=== PATIENT | female | born 1945 | race Caucasian/White ===

== ENCOUNTER 2017-01-21 21:39 | Inpatient (IN) | payer MEDICARE, OTHER ==
[~2017-01-21] VITALS: Ht 152.4 cm; Wt 52.2 kg
[2017-01-21] MEDS ORDERED: MAG HYDROX/AL HYDROX/SIMETH 30 ML UDC PO PRN (23:00)
[2017-01-21] MEDS ORDERED: MAGNESIUM HYDROXIDE 30 ML UDC PO PRN (23:00)
[2017-01-22 00:21] VITALS: BP 140/86
[2017-01-22] MEDS ORDERED: ZOLPIDEM TARTRATE 5 MG TABLET ONE (01:06)
[2017-01-22] MEDS: ZOLPIDEM TARTRATE 5 MG TABLET PO PRN ×2 (01:27→22:40)
--- NOTE | 2017-01-22 01:41 | NUR ---
GPS RN ADMITTED NOTES ADMITTED THIS 71Y/O FEMALE FROM [facility] ,PT INITIALLY CAME FROM HOME , PT. CAME TO THE UNIT VIA GURNEY ACCOMPANIED EMT STAFF PT. IS ON 5150 HOLD GRAVELY DISABLE, PER HOLD PT. REUSING TO TO TAKE HOME MEDICATIONS AND PT. NOT EATING SLEEPING ,UPON FACE TO FACE ASSESSMENT PT. A/O X3 ANXIOUS DEPRESSIVE UNCCOPERTIVE BX NOTED , MENTAL HX OF BIPOLAR DISORDERED, PT. DIDNOT PROVIDED ANY MEDICAL HX AND UNOBTAIN LIST OF INFORMATION MEDICATION SKIN ASSESSMENT DONE RIGHT /LEFT ARMS BRUISES NOTED , PICTURE TAKEN AND PLACED IN THE CHART , NO ACUTE DISTRESS NOTED , DENIES ANY PAIN DISCOMFORT AT THIS TIME , MRSA SCREENING DONE ,BOTH MD AWARE OF NEW ADMISSION NEW ORDERS RECEIVED AND CARRIED OUT, REORIENT TO UNIT POLICES AND CONTRABAND CHECKS , WILL CONTINUE TO MONITOR FOR SAFETY AND BEHAVIOR
[2017-01-22 06:51] LABS: BASOPHILS % (AUTO) 0.3 % (0.0-2.0); EOSINOPHILS # (AUTO) 0.1 /CMM (0.0-0.7); EOSINOPHILS % (AUTO) 1.1 % (0.0-6.0); HEMATOCRIT 45 % (33-45); HEMOGLOBIN 15.2 g/dL (11.5-14.8); LYMPHOCYTES % (AUTO) 30.2 % (20.0-44.0); MEAN CORPUSCULAR HEMOGLOBIN 32 PG (26.0-33.0); MEAN CORPUSCULAR HGB CONC 34 g/dl (31.0-36.0); MEAN CORPUSCULAR VOLUME 95 fL (82-100); MONOCYTES # (AUTO) 0.7 /CMM (0.1-1.30); MONOCYTES % (AUTO) 9.8 % (2.0-12.0); NEUTROPHILS # (AUTO) 3.9 /CMM (1.8-8.9); NEUTROPHILS % (AUTO) 58.6 % (43.0-81.0); PLATELET COUNT (AUTO) 216 /CMM (150-450); RDW COEFFICIENT OF VARIATION 13.9 (11.5-15.0); RED BLOOD CELL COUNT(AUTO) 4.78 MIL/uL (4.0-5.2); WHITE BLOOD COUNT (AUTO) 6.7 K/uL (4.3-11.0)
[2017-01-22 07:10] LABS: ALANINE AMINOTRANSFERASE 30 U/L (12-78); ALBUMIN 4.4 g/dL (3.4-5.0); ALKALINE PHOSPHATASE 70 U/L (46-116); ASPARTATE AMINOTRANSFERASE 26 U/L (15-37); BILIRUBIN,TOTAL 0.7 mg/dL (0.2-1.0); CALCIUM, SERUM 9.6 mg/dL (8.5-10.1); CARBON DIOXIDE 27 mmol/L (21-32); CHLORIDE 106 mmol/L (98-107); CREATININE 0.9 mg/dL (0.6-1.3); GLUCOSE 114 mg/dL (74-106); POTASSIUM 3.4 mmol/L (3.5-5.1); SODIUM SERUM 145 mmol/L (136-145); TOTAL PROTEIN, SERUM 7.9 g/dL (6.4-8.2); UREA NITROGEN, BLOOD 8 mg/dL (7-18)
[2017-01-22] MEDS ORDERED: SIMV40TA5 PO (07:38)
[2017-01-22] MEDS ORDERED: QUET50TA PO (07:38)
[2017-01-22] MEDS ORDERED: TEMA30CA PO (07:38)
[2017-01-22] MEDS ORDERED: ALPR0.5T8 PO (07:38)
[2017-01-22 08:00] VITALS: BP 147/87
[2017-01-22] MEDS ORDERED: POTASSIUM CHLORIDE 20 MEQ TAB.PRT.SR PO ONE (09:30)
[2017-01-22] MEDS: LORAZEPAM 0.5 MG TABLET PO PRN (11:02)
[2017-01-22] MEDS ORDERED: OLANZAPINE 10 MG VIAL IM ONE (12:30)
[2017-01-22] MEDS ORDERED: LORAZEPAM INJ 2 MG/ML VIAL IM ONE (12:30)
[2017-01-22] MEDS ORDERED: QUETIAPINE FUMARATE 25 MG TABLET PO SCH (14:30)
[2017-01-22 15:00] LABS: CHOLESTEROL 135 mg/dL (<200); HDL CHOLESTEROL 63 mg/dL (40-60); LDL 61 mg/dL (0-99); TRIGLYCERIDES 78 mg/dL (30-150)
[2017-01-22 16:00] VITALS: BP 139/81
[2017-01-22 20:00] VITALS: BP 135/95
--- NOTE | 2017-01-22 20:00 | NUR ---
RN INITIAL NOTES: RECEIVED PT, PT IN THE ROOM DAUGHTER AT BED SIDE, PT IS CALM AND CURRENTLY COOPERATIVE, RESPIRATION EVEN AND UNLABORED, DENIES ANY PAIN, PT IS A/O X3, PER REPORT PT BECAME COMBATIVE AGGRESSIVE DURING THE DAY AND HAS TO RECEIVE CHEMICAL RESTRAINT DUE TO AGGRESSIVE UNCONTROLLED BEHAVIOR.SO FAR, PT IS PLEASANT AND MED COMPLIANT, WILL CONTINUE TO MONITOR FOR SAFETY [id number] AND FOR ANY CHANGES IN BEHAVIOR
--- NOTE | 2017-01-22 22:40 | NUR ---
PRN AMBIEN: PT REQUESTED SLEEPING PILL, PRN AMBIEN 5MG TAB PO ADMINISTERED TO THE PT AT THIS TIME
--- NOTE | 2017-01-23 05:40 | NUR ---
RN NOTES: PT BECAME LOUD BECAUSE SHE DOESN'T WANT TO GO BACK TO HER ROOM AND WOULD LIKE TO WATCH THE OTHER PATIENT IN ROOM 213, EXPLAINED TO THE PT REGARDING SAFETY, BUT STILL DOES NOT WANT TO LISTEN
--- NOTE | 2017-01-23 06:52 | NUR ---
RN CLOSING NOTES: PT IN THE DINING ROOM SITTING IN A DRE CHAIR PT BECAME TOO LOUD EARLIER, DENIES ANY PAIN OR DISCOMFORT AT THIS TIME, DENIES ANY SI/HI, VS REMAINS STABLE, NEEDS ATTENDED, WILL ENDORSE TO DAY RN FOR JESSE.
[2017-01-23 08:12] VITALS: BP 149/90
[2017-01-23] MEDS: SERTRALINE HCL 25 MG TABLET PO SCH (08:43)
[2017-01-23] MEDS: LORAZEPAM 0.5 MG TABLET PO PRN (08:43)
[2017-01-23] MEDS: QUETIAPINE FUMARATE 25 MG TABLET PO SCH ×3 (09:29→21:35)
[2017-01-23] MEDS: ATENOLOL 25 MG TABLET PO SCH (13:30)
[2017-01-23 20:10] VITALS: BP 145/75
--- NOTE | 2017-01-24 00:25 | NUR ---
Pt has been anxious, loud, argumentative, difficult to redirect, & quite paranoid but compliant with meds w/o any promptings.
[2017-01-24] MEDS: ACETAMINOPHEN 325 MG TABLET PO PRN ×2 (02:52→20:58)
[2017-01-24 08:00] VITALS: BP 170/94
[2017-01-24] MEDS: ATENOLOL 25 MG TABLET PO SCH (08:55)
[2017-01-24] MEDS: QUETIAPINE FUMARATE 25 MG TABLET PO SCH ×4 (08:55→20:57)
[2017-01-24] MEDS: SERTRALINE HCL 25 MG TABLET PO SCH (08:55)
[2017-01-24] MEDS: ATENOLOL 50 MG TABLET PO SCH (11:04)
--- NOTE | 2017-01-24 14:58 | NUR ---
Initial discharge plan: Pt. resides at [address] [place] [address] and wants to discharge back home when ready. SW will talk to pt's , Natasha [phone] who was unavailable. MARCELLA will also follow up with Md and will help arrange for a safe and proper discharge.
[2017-01-24 16:00] VITALS: BP_SYST 105; BP_SYST 125; BP_DIAS 63; BP_DIAS 77
[2017-01-24 22:19] VITALS: BP 150/77
[2017-01-25] MEDS: ZOLPIDEM TARTRATE 5 MG TABLET PO PRN ×2 (02:09→21:28)
--- NOTE | 2017-01-25 02:17 | NUR ---
GPS RN: PATIENT CAME TO THE STATION, ASKING FOR A SLEEPING PILL. GIVEN HER PRN AMBIEN 5 MG PO ORDERED. WHEN SHE SAW THE SURVEYOR'S ASSISTANT DOING HIS ROUNDS, SHE STARTED CURSING AND POINTING HER FINGER AT THE SURVEYOR'S ASSISTANT. THE HAIR MACHINE OPERATOR THEN TRIED TO REDIRECT HER BACK TO THE ROOM, SURVEYOR'S ASSISTANT ALSO TRIED TO REDIRECT HER BACK TO THE ROOM BUT THE PATIENT, STARTED YELLING AND SCREAMING AND SAYING ALL PROFANITIES TOWARDS THE STAFF. PATIENT THEN MADE TO STAY IN THE ROOM.
[2017-01-25] MEDS: LORAZEPAM 0.5 MG TABLET PO PRN (05:59)
--- NOTE | 2017-01-25 06:00 | NUR ---
GPS RN NOTE: PATIENT WAS OUTSIDE THE STATION. WHEN ASKED THE PATIENT IF SHE NEEDS SOMETHING, PATIENT STATED "GET OUT OF HERE, FUCK YOU, FUCK YOURSELF WITH HAND GESTURES". CN AWARE AND WITNESSED THE BEHAVIOR. TRIED TO REDIRECT THE PATIENT BUT THE PATIENT IS HARD TO REDIRECT. PATIENT CONTINUED TO BE AGITATED, AGGRESSIVE, COMBATIVE AND VERBALLY ABUSIVE. PRIMARY NURSE CAME AND TALKED TO THE PATIENT.
--- NOTE | 2017-01-25 06:03 | NUR ---
GPS RN: PATIENT APPROACHED THE NURSE IN THE STATION ASKING FOR A MEDICATION. WHEN SHE SAW THE NURSES DOING THEIR MORNING CARE, PATIENT STARTED YELLING AND SCREAMING AT STAFF. CALLING THE NURSES "BITCH, FAT, LIARS!" PATIENT REDIRECTED TO THE ROOM, BUT PATIENT KEPT ON SCREAMING AND YELLING AT STAFF. ATIVAN 1 MG GIVEN ORALLY PRN MEDICATION. WILL MONITOR PATIENT FOR MOOD, SAFETY AND BEHAVIOR. PATIENT REDIRECTED TO THE DINING ROOM.
--- NOTE | 2017-01-25 06:10 | NUR ---
GPS RN: PATIENT WAS PHYSICALLY REDIRECTED TO THE DINING ROOM, PATIENT CONTINUED TO YELL AND SCREAM IN A LOUD MANNER "FUCK ALL OF YOU!, LIARS!" SHE ALSO KICKED THE STAFF ASSISTING HER TO THE DINING ROOM. . SHE WAS THEN PLACED IN A GERICHAIR FOR SAFETY. CHARGE NURSE CALLED DR. MOON AND INFORMED OF THE PATIENT'S BEHAVIOR. HE THEN GAVE ORDER OF ZYPREXA 10 MG IM ONCE. PRIMARY NURSE PREPARED THE MEDICATION. PRIOR TO GIVING THE IM SHOT, HEAD NECK SURGEON TRIED TO TAKE PATIENT'S VITAL SIGNS BUT PATIENT REFUSED TO COOPERATE. ZYPREXA 10 MG GIVEN IM ON RIGHT UPPER OUTER QUADRANT OF BUTTOCKS AREA AT 0618 AM. SHE WAS ASSISTED AND PHYSICALLY HELD DURING THE MEDICATION ADMINISTRATION. PATIENT CONTINUED TO RESIST AND WAS VERBALLY ABUSIVE SHE WAS BEING ASSISTED IN THE BED IN THE OBSERVATION ROOM.
[2017-01-25] MEDS ORDERED: OLANZAPINE 10 MG VIAL IM ONE ×2 (06:16→06:30)
--- NOTE | 2017-01-25 07:02 | NUR ---
GPS RN NOTE: NOTIFIED LYNDSAY () OF THE PATIENT. LYNDSAY STATED "IT SEEMS TO ME THAT SHE IS NOT GETTING BETTER AND SHE IS GETTING WORST. HOW LONG IS SHE GOING TO BE LIKE THIS". TOLD THE THAT WE CAN NOT BE SURE AT THIS TIME, BUT WE SURELY NOTIFIED THE DOCTOR ABOUT THE INCIDENT. APPRECIATED THE CALL
[2017-01-25 08:00] VITALS: BP 142/76
[2017-01-25] MEDS: ATENOLOL 50 MG TABLET PO SCH (08:16)
[2017-01-25] MEDS: QUETIAPINE FUMARATE 25 MG TABLET PO SCH ×4 (08:16→21:27)
[2017-01-25] MEDS: SERTRALINE HCL 25 MG TABLET PO SCH (08:16)
[2017-01-25 15:58] VITALS: BP 122/72
--- NOTE | 2017-01-25 16:55 | NUR ---
MARCELLA spoke with Natasha [phone] and pt. is not able to return home as she was unmanageable. MARCELLA provided him with information about pt's rights and he understands that if pt. stabilizes and refuses other help and placement options, she can return home.
[2017-01-25] MEDS: SIMVASTATIN 40 MG TABLET PO SCH (17:11)
[2017-01-25 20:12] VITALS: BP 149/88
[2017-01-25] MEDS: ACETAMINOPHEN 325 MG TABLET PO PRN (21:31)
--- NOTE | 2017-01-25 21:34 | NUR ---
GPS RN NOTE: ROUTINE MEDICATION GIVEN TO THE PATIENT. PATIENT APPEARED CALM AND PLEASANT, COMPLIANT AND STATED "IF I INSULTED YOU IN SOME OTHER WAY, IM VERY SORRY, ITS ME, IM HERE FOR A REASON". TOLD PATIENT THAT WE ARE HERE NOT TO LAUNDRY ROOM ATTENDANT THE PATIENT BUT TO HELP THEM. PATIENT IS APPRECIATIVE. ALL NEEDS ATTENDED AND MET. WILL CONTINUE TO MONITOR [id number] FOR SAFETY
[2017-01-26 08:00] VITALS: BP 150/77
[2017-01-26] MEDS: QUETIAPINE FUMARATE 25 MG TABLET PO SCH ×4 (08:26→21:00)
[2017-01-26] MEDS: ATENOLOL 50 MG TABLET PO SCH (08:27)
[2017-01-26] MEDS: SERTRALINE HCL 25 MG TABLET PO SCH (09:29)
[2017-01-26] MEDS ORDERED: OLANZAPINE 10 MG VIAL IM STA (14:54)
--- NOTE | 2017-01-26 15:13 | NUR ---
RN NOTE:PATIENT AGITATED AND ASSAULTIVE REQUESTED ZYPREXA IM INJECTION DR JOHNSON CALLED WITH NEW ORDER ZYPREXA 7.5 MG IM GIVEN AT 1513 ALL ORDERS CARRIED OUT .
--- NOTE | 2017-01-26 15:46 | NUR ---
SW attempted to speak with the patient regarding discharge options but pt. was irritable and did not want to speak. SW will try again later.
[2017-01-26 16:07] VITALS: BP 120/61
[2017-01-26] MEDS: SIMVASTATIN 40 MG TABLET PO SCH (18:23)
--- NOTE | 2017-01-26 19:47 | NUR ---
RN NOTES DR. JOHNSON MADE AWARE THAT PATIENT IS AGITATED, GOING INTO PATIENT'S ROOM, SHOUTING EXPLETIVES. DR. JOHNSON ORDERED HALDOL 5 MG IM X 1, BENADRYL 25 MG IM X 1, AND ATIVAN 1 MG IM X 1, NOTED AND CARRIED OUT.
[2017-01-26 20:00] VITALS: BP 135/73
[2017-01-26] MEDS ORDERED: LORAZEPAM INJ 2 MG/ML VIAL IM ONE (20:00)
[2017-01-26] MEDS ORDERED: HALOPERIDOL LACTATE INJ 5 MG/ML VIAL IM ONE (20:00)
[2017-01-26] MEDS ORDERED: diphenhydrAMINE HCL 50 MG/ML VIAL IM ONE (20:00)
[2017-01-26 20:06] VITALS: BP 135/73
[2017-01-26] MEDS ORDERED: diphenhydrAMINE HCL 50 MG/ML VIAL ONE (20:17)
--- NOTE | 2017-01-27 03:20 | NUR ---
RN NOTES PATIENT MONITORED CLOSELY ALL NIGHT. PATIENT CALMED DOWN; NO LONGER AGITATED. PATIENT WAS ABLE TO SLEEP ON AND OFF. HALDOL IM, BENADRYL IM, AND ATIVAN IM WERE NOT ADMINISTERED AND SUBSEQUENTLY RETURNED OR WASTED. WILL CONTINUE TO MONITOR FOR ANY CHANGE IN MOOD.
--- NOTE | 2017-01-27 06:16 | NUR ---
RN NOTES PATIENT IN BED ASLEEP, AROUSABLE. RESPIRATIONS EVEN. NO SIGNS OF PAIN NOTED. NEEDS ATTENDED. SAFETY PRECAUTIONS AND COMFORT MEASURES IN PLACE. WILL GIVE REPORT TO DAY SHIFT FOR CONTINUITY OF CARE.
[2017-01-27 08:00] VITALS: BP 153/92
[2017-01-27] MEDS: QUETIAPINE FUMARATE 25 MG TABLET PO SCH ×5 (08:08→20:18)
[2017-01-27] MEDS: ATENOLOL 50 MG TABLET PO SCH (08:08)
[2017-01-27] MEDS: DIVALPROEX SODIUM 125 MG TABLET.DR PO SCH ×2 (12:30→20:18)
[2017-01-27] MEDS: SIMVASTATIN 40 MG TABLET PO SCH (16:51)
--- NOTE | 2017-01-27 17:00 | NUR ---
PT. REFUSED FOR V/S CHECKED, EXPLAINED ON THE IMPORTANCE AND PT. STILL REFUSING.
[2017-01-27 20:00] VITALS: BP 104/54
[2017-01-27] MEDS: ZOLPIDEM TARTRATE 5 MG TABLET PO PRN (20:18)
[2017-01-28 08:00] VITALS: BP 106/73
[2017-01-28] MEDS: DIVALPROEX SODIUM 125 MG TABLET.DR PO SCH ×2 (08:16→20:55)
[2017-01-28] MEDS: QUETIAPINE FUMARATE 25 MG TABLET PO SCH ×4 (08:17→20:55)
[2017-01-28] MEDS: ATENOLOL 50 MG TABLET PO SCH (08:17)
[2017-01-28 15:57] VITALS: BP 126/77
[2017-01-28] MEDS: SIMVASTATIN 40 MG TABLET PO SCH (17:43)
--- NOTE | 2017-01-28 19:16 | NUR ---
GPS/RN NOTE: RECEIVED PATIENT AT THE DINING AREA ON THE BRYSON-CHAIR, FAMILY VISITS AT THIS TIME. NO APPARENT DISTRESS NOTED.
[2017-01-28 20:00] VITALS: BP 109/51
[2017-01-29] MEDS: LORAZEPAM 0.5 MG TABLET PO PRN ×2 (00:20→10:32)
--- NOTE | 2017-01-29 00:21 | NUR ---
GPS/RN NOTE: PATIENT ANXIOUS, UNABLE TO SLEEP, ATIVAN 1 MG TAB PO GIVEN.
[2017-01-29 08:00] VITALS: BP 122/82
[2017-01-29 08:31] LABS: BASOPHILS % (AUTO) 0.4 % (0.0-2.0); EOSINOPHILS # (AUTO) 0.1 /CMM (0.0-0.7); EOSINOPHILS % (AUTO) 1.9 % (0.0-6.0); HEMATOCRIT 37 % (33-45); HEMOGLOBIN 12.6 g/dL (11.5-14.8); LYMPHOCYTES # (AUTO) 1.6 /CMM (0.8-4.8); LYMPHOCYTES % (AUTO) 27.1 % (20.0-44.0); MEAN CORPUSCULAR HEMOGLOBIN 33 PG (26.0-33.0); MEAN CORPUSCULAR HGB CONC 34 g/dl (31.0-36.0); MEAN CORPUSCULAR VOLUME 95 fL (82-100); MONOCYTES # (AUTO) 0.6 /CMM (0.1-1.30); MONOCYTES % (AUTO) 9.8 % (2.0-12.0); NEUTROPHILS # (AUTO) 3.5 /CMM (1.8-8.9); NEUTROPHILS % (AUTO) 60.8 % (43.0-81.0); PLATELET COUNT (AUTO) 219 /CMM (150-450); RDW COEFFICIENT OF VARIATION 13.7 (11.5-15.0); RED BLOOD CELL COUNT(AUTO) 3.89 MIL/uL (4.0-5.2); WHITE BLOOD COUNT (AUTO) 5.8 K/uL (4.3-11.0)
[2017-01-29 09:07] LABS: CARBON DIOXIDE 28 mmol/L (21-32); CHLORIDE 108 mmol/L (98-107); CREATININE 0.9 mg/dL (0.6-1.3); GLUCOSE 107 mg/dL (74-106); POTASSIUM 4.8 mmol/L (3.5-5.1); SODIUM SERUM 144 mmol/L (136-145); UREA NITROGEN, BLOOD 18 mg/dL (7-18)
[2017-01-29] MEDS: ATENOLOL 50 MG TABLET PO SCH (10:32)
[2017-01-29] MEDS: QUETIAPINE FUMARATE 25 MG TABLET PO SCH ×4 (10:32→21:48)
[2017-01-29] MEDS: DIVALPROEX SODIUM 125 MG TABLET.DR PO SCH ×2 (10:33→21:48)
[2017-01-29 16:00] VITALS: BP 105/64
[2017-01-29] MEDS: SIMVASTATIN 40 MG TABLET PO SCH (17:59)
[2017-01-29 20:00] VITALS: BP 121/64
[2017-01-29] MEDS: ZOLPIDEM TARTRATE 5 MG TABLET PO PRN (21:48)
[2017-01-30 07:48] VITALS: BP 124/67
[2017-01-30] MEDS: QUETIAPINE FUMARATE 25 MG TABLET PO SCH ×4 (08:25→21:37)
[2017-01-30] MEDS: DIVALPROEX SODIUM 125 MG TABLET.DR PO SCH ×2 (08:25→21:37)
[2017-01-30] MEDS: ATENOLOL 50 MG TABLET PO SCH (08:26)
[2017-01-30 15:45] VITALS: BP 102/65
[2017-01-30] MEDS: SIMVASTATIN 40 MG TABLET PO SCH (17:57)
[2017-01-30 20:05] VITALS: BP 125/74
[2017-01-30] MEDS: ZOLPIDEM TARTRATE 5 MG TABLET PO PRN (21:37)
--- NOTE | 2017-01-31 07:55 | NUR ---
RN GPS NOTES PT AT THE DINING ROOM EATING BREAKFAST, CALM AT THIS TIME, NEEDS ATTENDED.
[2017-01-31 08:00] VITALS: BP 101/64
[2017-01-31] MEDS: QUETIAPINE FUMARATE 25 MG TABLET PO SCH ×3 (08:58→17:00)
[2017-01-31] MEDS: DIVALPROEX SODIUM 125 MG TABLET.DR PO SCH ×3 (08:58→22:36)
[2017-01-31] MEDS: ATENOLOL 50 MG TABLET PO SCH (09:00)
--- NOTE | 2017-01-31 14:16 | NUR ---
MARCELLA met with the patient again today and pt. refuses to be placed in a facility. Pt. states she wants to return home and will not agree to a placement.
--- NOTE | 2017-01-31 14:17 | NUR ---
MARCELLA spoke with pt's , Natasha [phone] who wanted to provide pt's daughter's phone number, Laura [phone]. Natasha stated that Laura might be coming to bean picker the patient if she is discharging tomorrow or Tuesday.
--- NOTE | 2017-01-31 17:23 | NUR ---
RN GPS NOTES PT IN HER ROOM, LOOKING OUT THE WINDOW, REFUSED ALL PM MEDS, EXPLAINED RISKS AND BENEFITS, STILL REFUSED, RJ METAL BENDING MACHINE OPERATOR CAME TO SEE PT, INFORMED OF PT'S REFUSALS, DR. JOHNSON ALSO AWARE.
[2017-01-31] MEDS: SIMVASTATIN 40 MG TABLET PO SCH (18:00)
[2017-01-31] MEDS: QUETIAPINE FUMARATE 100 MG TABLET PO SCH ×2 (21:43→22:36)
--- NOTE | 2017-01-31 21:43 | NUR ---
GPS RN NOTE: PATIENT REFUSED SEROQUEL AND DEPAKOTE, ATTEMPTED X 3, EXPLAINED THE RISK AND BENEFIT, PATIENT STILL REFUSED AND STATED "I UNDERSTAND THE CIRCUMSTANCES BUT I STILL REFUSED" WILL CONTINUE TO MONITOR [id number] FOR SAFETY
--- NOTE | 2017-01-31 22:52 | NUR ---
GPS RN NOTE: PATIENT NOTED FOR ASKING THE MEDICATION INTO ANOTHER FEMALE NURSE. PER REPORT PATIENT APPEARED PARANOID AND SUSPICIOUS. SCHEDULED DEPAKOTE AND SEROQUEL GIVEN BY OTHER NURSE AND PATIENT COOPERATED. WILL CONTINUE TO MONITOR [id number] FOR SAFETY
[2017-02-01 08:00] VITALS: BP 130/78
[2017-02-01] MEDS: ATENOLOL 50 MG TABLET PO SCH (08:32)
[2017-02-01] MEDS: QUETIAPINE FUMARATE 25 MG TABLET PO SCH ×3 (08:37→16:32)
--- NOTE | 2017-02-01 15:12 | NUR ---
MARCELLA spoke with pt's , Natasha [phone] notifying him of pt's discharge. Natasha was a little nervous but understands that since pt. declines placement, pt. has the right to return back home.
--- NOTE | 2017-02-01 16:05 | NUR ---
GPS RN NOTE PT AGITATED, CUSSING AT STAFF MEMBER. TRIED REDIRECTING PT. UNABLE PT IS YELLING PUSHING OTHERS. TRIED TALKING DOWN PT.
[2017-02-01 16:09] VITALS: BP 128/68
--- NOTE | 2017-02-01 16:15 | NUR ---
RN NOTE : PATIENT AGITATED WITH NO REASON ,YELLING AND SCREAMING AT EVERYBODY ,VERBALLY ABUSIVE ,UNPREDICTABLE NOT FOLLOWING DIRECTIONS ,UNPREDICTABLE, STATED " YOU ARE A BITCH ". ,PUSHED HER ROOMMATE AND CAUSED HER TO FALL ON THE FLOOR CALLED WITH NEW ORDER ZYPREXA 5MG IM X1 STAT ,DR. VASQUEZ CALLED WITH NEW ORDER LUMBAR SACRAL X-RAY FOR PATIENT WHO FELL ON THE FLOOR ,ALL ORDERS CARRIED OUT .
[2017-02-01] MEDS ORDERED: OLANZAPINE 10 MG VIAL IM STA (16:17)
[2017-02-01] MEDS: SIMVASTATIN 40 MG TABLET PO SCH (17:13)
[2017-02-01 20:33] VITALS: BP 123/68
[2017-02-01] MEDS: DIVALPROEX SODIUM 125 MG TABLET.DR PO SCH (21:16)
[2017-02-01] MEDS: ZOLPIDEM TARTRATE 5 MG TABLET PO PRN (21:16)
[2017-02-02 07:05] LABS: BASOPHILS % (AUTO) 0.3 % (0.0-2.0); EOSINOPHILS # (AUTO) 0.1 /CMM (0.0-0.7); EOSINOPHILS % (AUTO) 2.1 % (0.0-6.0); HEMATOCRIT 39 % (33-45); LYMPHOCYTES # (AUTO) 1.7 /CMM (0.8-4.8); LYMPHOCYTES % (AUTO) 27.2 % (20.0-44.0); MEAN CORPUSCULAR HEMOGLOBIN 32 PG (26.0-33.0); MEAN CORPUSCULAR HGB CONC 33 g/dl (31.0-36.0); MEAN CORPUSCULAR VOLUME 97 fL (82-100); MONOCYTES # (AUTO) 0.6 /CMM (0.1-1.30); MONOCYTES % (AUTO) 9.1 % (2.0-12.0); NEUTROPHILS # (AUTO) 3.8 /CMM (1.8-8.9); NEUTROPHILS % (AUTO) 61.3 % (43.0-81.0); PLATELET COUNT (AUTO) 239 /CMM (150-450); RDW COEFFICIENT OF VARIATION 14.1 (11.5-15.0); RED BLOOD CELL COUNT(AUTO) 4.07 MIL/uL (4.0-5.2); WHITE BLOOD COUNT (AUTO) 6.1 K/uL (4.3-11.0)
[2017-02-02 07:22] LABS: ALANINE AMINOTRANSFERASE 20 U/L (12-78); ALBUMIN 3.8 g/dL (3.4-5.0); ALKALINE PHOSPHATASE 81 U/L (46-116); ASPARTATE AMINOTRANSFERASE 15 U/L (15-37); BILIRUBIN,TOTAL 0.4 mg/dL (0.2-1.0); CARBON DIOXIDE 29 mmol/L (21-32); CHLORIDE 109 mmol/L (98-107); CREATININE 0.8 mg/dL (0.6-1.3); GLUCOSE 99 mg/dL (74-106); MAGNESIUM 2.2 mg/dL (1.8-2.4); POTASSIUM 4.3 mmol/L (3.5-5.1); SODIUM SERUM 145 mmol/L (136-145); TOTAL PROTEIN, SERUM 7.1 g/dL (6.4-8.2); UREA NITROGEN, BLOOD 19 mg/dL (7-18)
[2017-02-02 07:35] LABS: VALPROIC ACID 70 ug/mL (50-100)
[2017-02-02 08:00] VITALS: BP 129/79
[2017-02-02] MEDS: DIVALPROEX SODIUM 125 MG TABLET.DR PO SCH ×4 (08:50→17:21)
[2017-02-02] MEDS: ATENOLOL 50 MG TABLET PO SCH (08:50)
[2017-02-02] MEDS: QUETIAPINE FUMARATE 25 MG TABLET PO SCH ×4 (08:50→17:18)
[2017-02-02] MEDS: HALOPERIDOL 1 MG TABLET PO SCH ×3 (11:38→17:21)
--- NOTE | 2017-02-02 15:13 | NUR ---
MARCELLA spoke with pt's , Natasha [phone] notifying him that pt. won't be discharged today due to her aggressive behavior yesterday night. Natasha was relieved.
--- NOTE | 2017-02-02 15:14 | NUR ---
MARCELLA sent a referral to [facility] [address] [place] [address] [place] [address] will follow up Addendum: 02/04/17 at 1151 by YEFRI NARANJO Per CJ from the facility, pt is accepted.
[2017-02-02 16:17] VITALS: BP 118/68
[2017-02-02] MEDS: SIMVASTATIN 40 MG TABLET PO SCH (17:17)
[2017-02-02 20:14] VITALS: BP 126/68
[2017-02-02] MEDS: QUETIAPINE FUMARATE 100 MG TABLET PO SCH (21:26)
[2017-02-02] MEDS: ZOLPIDEM TARTRATE 5 MG TABLET PO PRN (22:54)
[2017-02-03 08:00] VITALS: BP 127/71
[2017-02-03] MEDS: DIVALPROEX SODIUM 125 MG TABLET.DR PO SCH ×3 (08:49→16:14)
[2017-02-03] MEDS: HALOPERIDOL 1 MG TABLET PO SCH ×2 (08:49→16:14)
[2017-02-03] MEDS: QUETIAPINE FUMARATE 25 MG TABLET PO SCH ×3 (08:50→16:14)
[2017-02-03] MEDS: ATENOLOL 50 MG TABLET PO SCH (08:50)
--- NOTE | 2017-02-03 12:07 | NUR ---
EKG reviewed Dr. Pettit. Ok to give haldol decanoate. Verbal order of haldol decanoate 12.5 mg x 1 IM to give now. pt agrees with medication.
--- NOTE | 2017-02-03 12:18 | NUR ---
verbal order by dr. john for depakote level for tomorrow 02/04/2017. order in the system.
[2017-02-03] MEDS ORDERED: HALOPERIDOL DECANOATE IM 100 MG/ML AMPUL IM ONE (12:30)
--- NOTE | 2017-02-03 14:14 | NUR ---
SW spoke with the patient's daughter, Laura [phone] who was concerned that the patient may return home before she is completely stable, and that she will speak with the patient to convince her to agree to placement. Pt. has been agreeable at times, but mostly refusing to go to a facility and states she wants to either go home or stay at the hospital.
--- NOTE | 2017-02-03 15:02 | NUR ---
SW spoke with pt's , Natasha [phone] who wanted to know updates. SW provided him with all necessary information.
[2017-02-03 15:40] VITALS: BP 107/68
[2017-02-03] MEDS: SIMVASTATIN 40 MG TABLET PO SCH (16:14)
[2017-02-03 20:00] VITALS: BP 97/63
[2017-02-03] MEDS: ZOLPIDEM TARTRATE 5 MG TABLET PO PRN (22:03)
[2017-02-03] MEDS: QUETIAPINE FUMARATE 100 MG TABLET PO SCH (22:03)
[2017-02-04 08:00] VITALS: BP 129/78
[2017-02-04] MEDS: DIVALPROEX SODIUM 125 MG TABLET.DR PO SCH ×3 (08:19→17:17)
[2017-02-04] MEDS: ATENOLOL 50 MG TABLET PO SCH (08:19)
[2017-02-04] MEDS: QUETIAPINE FUMARATE 25 MG TABLET PO SCH ×3 (08:19→17:18)
[2017-02-04] MEDS: HALOPERIDOL 1 MG TABLET PO SCH ×2 (08:20→17:19)
--- NOTE | 2017-02-04 11:51 | NUR ---
Discharge note: Pt. will discharge to [facility] [address] [place] [address] on 02/05/17 via [facility] at 11:30AM. Pt. will follow up with psychiatrist Dr. [facility]ettit [address] [facility] [address], [place] [address] on February 08, 2017 at 10:30AM at the facility to discuss substance abuse. Pt will also be followed by the facility assembly machine set up mechanic, Dr. Vickers [address] [facility] [address], [place] [address] Phone: . Pt's , Natasha Veliz, /[phone] and daughter, Laura [phone] are notified and Laura will be at the hospital around 11AM to help with the transition. Discharge paperwork has been signed, discharge instructions to be provided to the accepting facility on the day of discharge.
[2017-02-04 16:00] VITALS: BP 103/67
[2017-02-04] MEDS: SIMVASTATIN 40 MG TABLET PO SCH (17:19)
[2017-02-04 20:00] VITALS: BP 99/58
[2017-02-04] MEDS: QUETIAPINE FUMARATE 100 MG TABLET PO SCH (21:27)
--- NOTE | 2017-02-05 06:46 | NUR ---
RN GPS NOTES PATIENT RESTING HER BED, NO ACUTE DISTRESS NOTED ,NO CHANGES IN STATUS. ALL NEEDS ATTENDED ANTICIPATED, DENIES SI HI AT THIS TIME ,WILL ENDORSE TO NEXT SHIFT FOR CONTINUITY CARE
[2017-02-05 08:19] VITALS: BP 100/61
[2017-02-05] MEDS: QUETIAPINE FUMARATE 25 MG TABLET PO SCH (08:34)
[2017-02-05] MEDS: DIVALPROEX SODIUM 125 MG TABLET.DR PO SCH (08:34)
[2017-02-05 08:35] VITALS: BP 100/61
[2017-02-05] MEDS: ATENOLOL 50 MG TABLET PO SCH (08:35)
[2017-02-05] MEDS: HALOPERIDOL 1 MG TABLET PO SCH (08:35)
--- NOTE | 2017-02-05 09:17 | NUR ---
DR. JOHNSON GAVE AN ORDER TO D/C HOLD AND D/C TO [facility]. PT. WITHOUT DISTRESS, DENIES SUICIDAL AND HOMICIDAL. TO FOLLOW UP WITH PSYCH AND MEDICAL DOCTORS. SPOKE TO HEATHER AND [facility]ETH IN THE FACILITY AND CONFIRMED THAT THEY WILL ACCEPT THE PT. TODAY. WAS NOTIFIED ABOUT THE DISCHARGE.
--- NOTE | 2017-02-05 11:44 | NUR ---
GPS EXAMINATION PROCTOR NOTE: PATIENT DISCHARGE TO [facility] [address] [place] [address]. [place] [address] [phone] PT IN STABLE CONDITION NO S/S DISTRESS NOTED. PATIENT DENIES SI/HI DENIES PAIN OR ANY DISCOMFORT. DR JOHNSON AND DR GUZMAN AWARE AND DC ORDERS PLACED WITH MEDICATIONS RECONCILIATION DONE , PATIENT REFUSED SKIN ASSESSMENT, EXIT CARE DONE PRINTED SIGN AND GIVEN TO PATIENT, ALL BELONGINGS RETURNED TO PATIENT.
== END 2017-02-05 12:00 | DRG 885 ==
LOC: GPS 21:39
PROVIDERS: ADMIT Psychiatry & Neurology Psychosomatic Medicine; ATTEND Psychiatry & Neurology Psychosomatic Medicine
DX: F31.9 Bipolar disorder, unspecified (principal); I10 Essential (primary) hypertension; E78.5 Hyperlipidemia, unspecified; F29 Unspecified psychosis not due to a substance or known physiological condition; Z73.6 Limitation of activities due to disability; F12.90 Cannabis use, unspecified, uncomplicated; F13.10 Sedative, hypnotic or anxiolytic abuse, uncomplicated; G31.84 Mild cognitive impairment of uncertain or unknown etiology
CPT/HCPCS: 36415; 80048-TC; 80053-TC; 80061-TC; 80164-TC; 83735-TC; 85025-TC; 87081-TC; J1200; J1630; J1631; J2060; J3490; Z7610